=== PATIENT | male | born 1985 | race Caucasian/White ===

== ENCOUNTER 2020-09-17 19:04 | Emergency (ER) | payer BC, OTHER ==
[2020-09-17 19:11] VITALS: BMI 22.3
[2020-09-17] MEDS ORDERED: SODIUM CHLORIDE 0.9% 500 ML INFUS.BAG IV ONE (19:42)
[2020-09-17] MEDS ORDERED: FOLIC ACID 1 MG TABLET (FP) PO ONE (19:46)
[2020-09-17] MEDS ORDERED: THIAMINE HCL 100 MG TABLET (FP) PO ONE (19:46)
[2020-09-17] MEDS ORDERED: MULTIVITAMINS (DAILY MVI) TABLET (FP) PO ONE (19:46)
[2020-09-17] MEDS ORDERED: ACETAMINOPHEN 325 MG TABLET (FP) PO ONE (19:46)
[2020-09-17] MEDS ORDERED: FAMOTIDINE 20 MG/50 ML IVPB 20 MG/50 ML MG IVPB ONE ×2 (20:06→20:24)
[2020-09-17] MEDS ORDERED: ACETAMINOPHEN 325 MG TABLET (FP) ONE (20:23)
[2020-09-17 20:40] LABS: BASO % 0.8 % (0-2.0); EOS % 0.1 % (0-4.5); HEMATOCRIT 49.1 % (35.4-49); HEMOGLOBIN 16.6 GM/dL (11.7-16.9); LYMPH % 36.2 % (8-40); MCH 31.1 pg (25.7-33.7); MCHC 33.8 g/dl (32.0-35.9); MEAN CELL VOLUME 91.9 fl (80-96); MONO % 8.3 % (3.8-10.2); NEUT % 54.6 % (42.8-82.8); RBC 5.34 M/mm3 (4.00-5.60); RDW 14.1 % (11.9-15.9)
[2020-09-17 21:02] LABS: CHLORIDE 91 mmol/L (98-107); POTASSIUM 5.2 mmol/L (3.5-5.1); SODIUM 131 mmol/L (136-145)
[2020-09-17 21:05] LABS: CALCIUM 8.4 mg/dL (8.5-10.1)
[2020-09-17 21:06] LABS: ALBUMIN 4.5 g/dl (3.4-5.0); ANION GAP 17 MMOL/L (8-16); BLOOD UREA NITROGEN 8.3 mg/dL (7-18); CO2 24 mmol/L (21-32); GLUCOSE,RANDOM 76 mg/dL (74-106)
[2020-09-17 21:09] LABS: CREATININE 0.9 mg/dL (0.55-1.3); SGOT/AST 271 U/L (15-37); SGPT/ALT 182 U/L (13-61)
[2020-09-17 21:10] LABS: BILIRUBIN,TOTAL 1.1 mg/dL (0.2-1)
[2020-09-17 21:11] LABS: TOT PROT 8.4 g/dl (6.4-8.2)
[2020-09-17 21:12] LABS: ALK PHOS 116 U/L (45-117)
[2020-09-17 21:35] LABS: PLATELET ESTIMATE CANNOT ENNUMERATE
[2020-09-17] MEDS ORDERED: ONDANSETRON 4 MG/2 ML VIAL IVPUSH ONE (21:50)
[2020-09-17] MEDS ORDERED: ONDANSETRON 4 MG/2 ML VIAL ONE (21:55)
[2020-09-17] MEDS ORDERED: KETOROLAC TROMETHAMINE 30 MG/1 ML VIAL IVPUSH ONE (22:21)
[2020-09-17] MEDS ORDERED: KETOROLAC TROMETHAMINE 30 MG/1 ML VIAL ONE (22:33)
[2020-09-17] MEDS ORDERED: METOCLOPRAMIDE HCL INJECTION 10 MG/2 ML VIAL IVPUSH ONE (22:54)
[2020-09-17] MEDS ORDERED: METOCLOPRAMIDE HCL INJECTION 10 MG/2 ML VIAL ONE (22:56)
[2020-09-17] MEDS ORDERED: chlordiazePOXIDE HCL 25 MG CAPSULE PO ONE (23:48)
[2020-09-17] MEDS ORDERED: chlordiazePOXIDE HCL 25 MG CAPSULE ONE (23:49)
[2020-09-18 00:20] VITALS: BP 129/85; PULSE 113; TEMP 98.7
[2020-09-18] MEDS ORDERED: ONDANSETRON 4 MG/2 ML VIAL ONE (03:34)
[2020-09-18] MEDS ORDERED: ONDANSETRON 4 MG/2 ML VIAL IVPUSH ONE (03:34)
[2020-09-18] MEDS ORDERED: chlordiazePOXIDE HCL 25 MG CAPSULE PO ONE (03:48)
[2020-09-18] MEDS ORDERED: chlordiazePOXIDE HCL 25 MG CAPSULE ONE (03:48)
== END 2020-09-18 03:53 | disposition home or self-care (01) ==
LOC: JER 19:04
PROC: 3E033NZ Introduction of Analgesics, Hypnotics, Sedatives into Peripheral Vein, Percutaneous Approach (ICD-10-PCS; principal; 2020-09-17)
PROC: 3E033GC Introduction of Other Therapeutic Substance into Peripheral Vein, Percutaneous Approach (ICD-10-PCS; 2020-09-17)
PROC: 3E0333Z Introduction of Anti-inflammatory into Peripheral Vein, Percutaneous Approach (ICD-10-PCS; 2020-09-17)
DX: R74.01 Elevation of levels of liver transaminase levels (principal); F10.929 Alcohol use, unspecified with intoxication, unspecified
CPT/HCPCS: 36415; 71045-TC-FY; 80053; 80307; 82550; 82553; 83690; 84484; 85025; 93005; 93010; 99285-25

== ENCOUNTER 2021-06-28 18:39 | Inpatient (IN) | payer BC ==
[2021-06-28 18:49] VITALS: BMI 27.8
[2021-06-28] MEDS ORDERED: FOLIC ACID INJECTION - 1 MG, THIAMINE HCL 100 MG, MULTIVIT INJECTION ADULT 10 ML in SOD... IVPB ONE (19:25)
[2021-06-28] MEDS ORDERED: ONDANSETRON 4 MG/2 ML VIAL IVPUSH ONE (19:32)
[2021-06-28] MEDS ORDERED: chlordiazePOXIDE HCL 25 MG CAPSULE PO ONE (19:33)
[2021-06-28] MEDS ORDERED: ONDANSETRON 4 MG/2 ML VIAL ONE (19:54)
[2021-06-28] MEDS ORDERED: diazePAM 5 MG TABLET PO ONE ×2 (20:05→21:51)
[2021-06-28] MEDS ORDERED: diazePAM 5 MG TABLET ONE ×2 (20:08→21:53)
[2021-06-28 20:19] LABS: BASO % 0.7 % (0-2.0); HEMATOCRIT 42.6 % (35.4-49); HEMOGLOBIN 15.3 GM/dL (11.7-16.9); LYMPH % 19.7 % (8-40); MCH 31.7 pg (25.7-33.7); MCHC 35.9 g/dl (32.0-35.9); MEAN CELL VOLUME 88.1 fl (80-96); MEAN PLT VOLUME 9.6 fl (7.5-11.1); MONO % 7.5 % (3.8-10.2); NEUT % 72.1 % (42.8-82.8); PLATELET COUNT 147 10^3/uL (134-434); RBC 4.83 M/mm3 (4.00-5.60); RDW 15.1 % (11.9-15.9); WHITE BLOOD COUNT 7.2 K/mm3 (4.0-10.0)
[2021-06-28 20:38] LABS: CALCIUM 8.5 mg/dL (8.5-10.1)
[2021-06-28 20:39] LABS: ALBUMIN 4.4 g/dl (3.4-5.0); BLOOD UREA NITROGEN 9.3 mg/dL (7-18)
[2021-06-28 20:42] LABS: CREATININE 0.8 mg/dL (0.55-1.3)
[2021-06-28 20:43] LABS: BILIRUBIN,TOTAL 1.3 mg/dL (0.2-1)
[2021-06-29] MEDS ORDERED: POTASSIUM CHLORIDE ORAL LIQUID 20 MEQ/15 ML PO ONE (00:16)
[2021-06-29] MEDS ORDERED: ONDANSETRON 4 MG/2 ML VIAL IVPUSH ONE (00:21)
[2021-06-29] MEDS ORDERED: LORazepam 1 MG TABLET PO PRN (00:23)
[2021-06-29] MEDS ORDERED: ONDANSETRON 4 MG/2 ML VIAL ONE (00:25)
[2021-06-29] MEDS ORDERED: KCL 10 MEQ IVPB 10 MEQ/100 ML INFUS.BAG IVPB SCH (00:30)
[2021-06-29] MEDS ORDERED: SODIUM CHLORIDE 1,000 ML IV SCH (00:30)
[2021-06-29] MEDS ORDERED: KCL 10 MEQ IVPB 10 MEQ/100 ML INFUS.BAG IVPB ONE (01:35)
[2021-06-29] MEDS ORDERED: POTASSIUM CHLORIDE TABS 20 MEQ TABLET.ER (FP) PO ONE ×2 (01:35→10:30)
[2021-06-29] MEDS ORDERED: LORazepam 1 MG TABLET ONE (02:11)
[2021-06-29 02:12] LABS: EPI CELLS 14 /uL (0-25.1); HYALINE CASTS 0 /uL (0-3.1); PH,URINE 6.5 (5.0-8.0); URINE APPEARANCE CLEAR; URINE BACTERIA 27 /uL (0-1359); URINE BILIRUBIN NEGATIVE (NEGATIVE); URINE COLOR DK YELLOW; URINE GLUCOSE (UA) NEGATIVE (NEGATIVE); URINE KETONE 3+ (NEGATIVE); URINE LEUK ESTERASE TRACE (NEGATIVE); URINE NITRITE NEGATIVE (NEGATIVE); URINE PROTEIN 1+ (NEGATIVE); URINE RBC 13 /uL (0-23.9); URINE WBC 7 /uL (0-25.8)
[2021-06-29] MEDS: LORazepam 1 MG TABLET PO SCH ×4 (04:03→22:01)
[2021-06-29] MEDS ORDERED: FOLIC ACID INJECTION - 1 MG, THIAMINE HCL 100 MG, MULTIVIT INJECTION ADULT 10 ML in SOD... IVPB ONE (05:37)
[2021-06-29] MEDS ORDERED: LORazepam 2 MG/ML SDV VIAL IVPUSH ONE (09:30)
[2021-06-29] MEDS ORDERED: LORazepam 2 MG/ML SDV VIAL ONE (09:33)
[2021-06-29] MEDS: THIAMINE HCL 100 MG TABLET (FP) PO SCH (09:43)
[2021-06-29] MEDS: FOLIC ACID 1 MG TABLET (FP) PO SCH (09:43)
[2021-06-29] MEDS: ENOXAPARIN NA (PORCINE) 40 MG/0.4 ML DISP.SYRIN SQ SCH (09:43)
[2021-06-29 10:03] LABS: HEMATOCRIT 38.2 % (35.4-49); HEMOGLOBIN 13.4 GM/dL (11.7-16.9); MCH 31.6 pg (25.7-33.7); MCHC 35.1 g/dl (32.0-35.9); MEAN PLT VOLUME 9.8 fl (7.5-11.1); PLATELET COUNT 73 10^3/uL (134-434); RBC 4.24 M/mm3 (4.00-5.60); RDW 15.3 % (11.9-15.9); WHITE BLOOD COUNT 6.5 K/mm3 (4.0-10.0)
[2021-06-29 10:06] LABS: ALBUMIN 3.6 g/dl (3.4-5.0); BLOOD UREA NITROGEN 8.4 mg/dL (7-18)
[2021-06-29 10:10] LABS: MAGNESIUM 1.8 mg/dL (1.8-2.4)
[2021-06-29 10:11] LABS: CREATININE 0.7 mg/dL (0.55-1.3); PHOSPHOROUS 2.8 mg/dL (2.5-4.9)
[2021-06-29 10:14] LABS: BILIRUBIN,TOTAL 1.9 mg/dL (0.2-1); TOT PROT 6.7 g/dl (6.4-8.2)
[2021-06-29] MEDS ORDERED: PT OWN MED DRAWER 7, Y5N ONE (10:23)
[2021-06-30] MEDS: LORazepam 1 MG TABLET PO SCH ×3 (05:49→17:11)
[2021-06-30 08:06] LABS: BASO % 0.6 % (0-2.0); EOS % 1.9 % (0-4.5); HEMATOCRIT 41.7 % (35.4-49); HEMOGLOBIN 14.6 GM/dL (11.7-16.9); LYMPH % 19.6 % (8-40); MCHC 34.9 g/dl (32.0-35.9); MEAN CELL VOLUME 91.6 fl (80-96); MEAN PLT VOLUME 9.2 fl (7.5-11.1); MONO % 8.7 % (3.8-10.2); NEUT % 69.2 % (42.8-82.8); PLATELET COUNT 63 10^3/uL (134-434); RBC 4.56 M/mm3 (4.00-5.60); RDW 14.9 % (11.9-15.9)
[2021-06-30 08:36] LABS: WHITE BLOOD COUNT 5.9 K/mm3 (4.0-10.0)
[2021-06-30 08:42] LABS: BLOOD UREA NITROGEN 9.4 mg/dL (7-18)
[2021-06-30 08:43] LABS: ALBUMIN 3.8 g/dl (3.4-5.0); CALCIUM 8.5 mg/dL (8.5-10.1)
[2021-06-30 08:45] LABS: MAGNESIUM 2.1 mg/dL (1.8-2.4)
[2021-06-30 08:46] LABS: CREATININE 0.7 mg/dL (0.55-1.3); PHOSPHOROUS 2.6 mg/dL (2.5-4.9)
[2021-06-30 08:49] LABS: BILIRUBIN,TOTAL 1.6 mg/dL (0.2-1)
[2021-06-30] MEDS: FOLIC ACID 1 MG TABLET (FP) PO SCH (09:39)
[2021-06-30] MEDS: THIAMINE HCL 100 MG TABLET (FP) PO SCH (09:39)
[2021-06-30] MEDS: ENOXAPARIN NA (PORCINE) 40 MG/0.4 ML DISP.SYRIN SQ SCH (09:39)
[2021-06-30] MEDS ORDERED: SERTRALINE HCL 25 MG TABLET (FP) PO SCH (10:00)
[2021-06-30 13:40] VITALS: PULSE 108
[2021-06-30 18:05] VITALS: BP 148/98; TEMP 97.8
[2021-07-01] MEDS ORDERED: LORazepam 0.5 MG TABLET PO PRN
[2021-07-01] MEDS ORDERED: LORazepam 0.5 MG TABLET PO SCH (05:00)
[2021-07-02] MEDS ORDERED: LORazepam 0.5 MG TABLET PO ONE (05:00)
== END 2021-06-30 18:29 | disposition other institution (70) | DRG 897 ==
LOC: JER 18:39 → JERBED 21:57 → J5S 06-29 03:43 → J4S 06-29 15:17
PROVIDERS: ADMIT Internal Medicine
PROC: HZ2ZZZZ Detoxification Services for Substance Abuse Treatment (ICD-10-PCS; principal; 2021-06-28)
DX: F10.230 Alcohol dependence with withdrawal, uncomplicated (principal); E87.1 Hypo-osmolality and hyponatremia; R00.0 Tachycardia, unspecified; R56.9 Unspecified convulsions; E87.6 Hypokalemia; R94.5 Abnormal results of liver function studies; F41.8 Other specified anxiety disorders; F12.10 Cannabis abuse, uncomplicated
CPT/HCPCS: 36415; 71045-TC-FY; 76705-TC; 80053; 80307; 81003; 82570; 83735; 83935; 84100; 84300; 85025; 85027; 86022; 86706; 86708; 87086; 87517; 87522; 93005; 93010; 99285-25; C9803; U0003; U0005

== ENCOUNTER 2021-11-19 00:55 | Emergency (ER) | payer BC, OTHER ==
[2021-11-19 01:03] VITALS: BMI 27.8
[2021-11-19 01:20] VITALS: BP 135/65; TEMP 98.8
[2021-11-19] MEDS ORDERED: ONDANSETRON 4 MG/2 ML VIAL IVPUSH ONE (01:47)
[2021-11-19] MEDS ORDERED: MAG HYDROX/AL HYDROX/SIMETH 30 ML UNIT-DOSE CUP PO ONE (01:47)
[2021-11-19] MEDS ORDERED: FAMOTIDINE 20 MG/50 ML IVPB 20 MG/50 ML MG IVPB ONE ×3 (01:47→02:00)
[2021-11-19] MEDS ORDERED: FOLIC ACID 5 MG/1 ML IVPB ONE (01:49)
[2021-11-19] MEDS ORDERED: MAG HYDROX/AL HYDROX/SIMETH 30 ML UNIT-DOSE CUP ONE (01:59)
[2021-11-19] MEDS ORDERED: ONDANSETRON 4 MG/2 ML VIAL ONE (02:01)
[2021-11-19] MEDS ORDERED: THIAMINE HCL 200 MG/2 ML VIAL ONE (02:10)
[2021-11-19] MEDS ORDERED: FOLIC ACID 1 MG TABLET (FP) ONE (02:10)
[2021-11-19] MEDS: SODIUM CHLORIDE IVPB STA ×2 (02:18→02:25)
[2021-11-19] MEDS: THIAMINE HCL IVPB STA ×2 (02:18→02:25)
[2021-11-19] MEDS ORDERED: THIAMINE HCL IVPB STA (02:21)
[2021-11-19] MEDS ORDERED: SODIUM CHLORIDE IVPB STA (02:21)
[2021-11-19] MEDS ORDERED: chlordiazePOXIDE HCL 25 MG CAPSULE PO ONE (02:41)
[2021-11-19] MEDS ORDERED: chlordiazePOXIDE HCL 25 MG CAPSULE ONE (02:47)
[2021-11-19 02:49] LABS: BASO % 1.1 % (0-2.0); HEMATOCRIT 49.6 % (35.4-49); HEMOGLOBIN 17.3 GM/dL (11.7-16.9); LYMPH % 18.1 % (8-40); MCH 31.8 pg (25.7-33.7); MCHC 34.9 g/dl (32.0-35.9); MEAN CELL VOLUME 91.1 fl (80-96); MEAN PLT VOLUME 9.5 fl (7.5-11.1); MONO % 7.2 % (3.8-10.2); NEUT % 73.6 % (42.8-82.8); PLATELET COUNT 198 10^3/uL (134-434); RBC 5.45 M/mm3 (4.00-5.60); RDW 14.5 % (11.9-15.9); WHITE BLOOD COUNT 6.3 K/mm3 (4.0-10.0)
[2021-11-19 03:02] LABS: CHLORIDE 86 mmol/L (98-107); SODIUM 126 mmol/L (136-145)
[2021-11-19 03:04] LABS: ALBUMIN 4.6 g/dl (3.4-5.0); BLOOD UREA NITROGEN 12.4 mg/dL (7-18); CO2 22 mmol/L (21-32); GLUCOSE,RANDOM 89 mg/dL (74-106); MAGNESIUM 2.6 mg/dL (1.8-2.4)
[2021-11-19 03:07] LABS: PHOSPHOROUS 4.6 mg/dL (2.5-4.9)
[2021-11-19 03:09] LABS: BILIRUBIN,TOTAL 0.8 mg/dL (0.2-1); TOT PROT 9.3 g/dl (6.4-8.2)
[2021-11-19 03:10] LABS: ALK PHOS 111 U/L (45-117)
[2021-11-19 03:16] VITALS: PULSE 120
[2021-11-19 03:24] LABS: ANION GAP 18 MMOL/L (8-16); SGOT/AST 138 U/L (15-37); SGPT/ALT 109 U/L (13-61)
== END 2021-11-19 03:16 | disposition short-term general hospital (02) ==
LOC: JER 00:55
PROC: 3E033GC Introduction of Other Therapeutic Substance into Peripheral Vein, Percutaneous Approach (ICD-10-PCS; principal; 2021-11-19)
PROC: 3E033GC Introduction of Other Therapeutic Substance into Peripheral Vein, Percutaneous Approach (ICD-10-PCS; 2021-11-19)
PROC: 3E033GC Introduction of Other Therapeutic Substance into Peripheral Vein, Percutaneous Approach (ICD-10-PCS; 2021-11-19)
PROC: 3E0337Z Introduction of Electrolytic and Water Balance Substance into Peripheral Vein, Percutaneous Approach (ICD-10-PCS; 2021-11-19)
DX: F10.10 Alcohol abuse, uncomplicated (principal)
CPT/HCPCS: 36415; 80053; 80307; 83690; 83735; 84100; 85025; 93005; 93010; 99284-25

== ENCOUNTER 2021-11-19 03:41 | Inpatient (IN) | payer OTHER ==
[2021-11-19] MEDS ORDERED: chlordiazePOXIDE HCL 25 MG CAPSULE PO PRN (04:42)
[2021-11-19] MEDS ORDERED: P-EPHED 60MG/TRIPROLIDI 2.5MG TABLET PO PRN (04:42)
[2021-11-19] MEDS ORDERED: ACETAMINOPHEN 325 MG TABLET (FP) PO PRN ×2 (04:42)
[2021-11-19] MEDS ORDERED: DICYCLOMINE HCL 10 MG CAPSULE PO PRN (04:42)
[2021-11-19] MEDS ORDERED: MAGNESIUM CITRATE 300 ML BOTTLE PO PRN (04:42)
[2021-11-19] MEDS ORDERED: ONDANSETRON *ODT* 4 MG TABLET SL PRN (04:42)
[2021-11-19] MEDS ORDERED: guaiFENesin 200 MG/10 ML 10 ML UNIT-DOSE CUPS PO PRN (04:42)
[2021-11-19] MEDS ORDERED: MENTHOL/PHENOL 1 EACH UD MM PRN (04:42)
[2021-11-19] MEDS ORDERED: MAG HYDROX/AL HYDROX/SIMETH 30 ML UNIT-DOSE CUP PO PRN (04:42)
[2021-11-19] MEDS ORDERED: BISMUTH SUBSALICYLATE 524 MG/30 ML PO PRN (04:42)
[2021-11-19] MEDS ORDERED: METHOCARBAMOL 500 MG TABLET PO PRN (04:42)
[2021-11-19] MEDS ORDERED: MAGNESIUM HYDROX 2400MG/30ML ORAL SUSPENSION 30 ML CUP PO PRN (04:42)
[2021-11-19] MEDS ORDERED: chlordiazePOXIDE HCL 25 MG CAPSULE ONE ×3 (05:22→13:27)
[2021-11-19] MEDS: chlordiazePOXIDE HCL 25 MG CAPSULE PO SCH ×4 (05:24→22:07)
[2021-11-19 05:41] VITALS: BMI 28.8
[2021-11-19] MEDS ORDERED: TRIMETHOBENZAMIDE HCL 200MG/2ML INJ IM ONE ×2 (07:04→07:17)
[2021-11-19] MEDS ORDERED: cloNIDine HCL 0.1 MG TABLET PO ONE (07:04)
[2021-11-19] MEDS ORDERED: cloNIDine HCL 0.1 MG TABLET ONE (07:33)
[2021-11-19] MEDS ORDERED: ACETAMINOPHEN 325 MG TABLET (FP) ONE (11:36)
[2021-11-19] MEDS: PRENATAL VITAMINS W/ FOLIC ACID TABLET (FP) PO SCH (11:41)
[2021-11-19] MEDS ORDERED: METOPROLOL TARTRATE 25 MG TABLET (FP) PO ONE (13:26)
[2021-11-19 15:00] LABS: CALCIUM 8.8 mg/dL (8.5-10.1)
[2021-11-19 15:01] LABS: ALBUMIN 4.2 g/dl (3.4-5.0)
[2021-11-19 15:03] LABS: CREATININE 1.1 mg/dL (0.55-1.3)
[2021-11-19 15:06] LABS: BILIRUBIN,TOTAL 1.4 mg/dL (0.2-1); TOT PROT 7.6 g/dl (6.4-8.2)
[2021-11-19] MEDS: IBUPROFEN 400 MG TABLET (FP) PO PRN (17:46)
[2021-11-19] MEDS: THIAMINE HCL 100 MG TABLET (FP) PO SCH (22:06)
[2021-11-19] MEDS: MELATONIN 5 MG TABLETS PO SCH (22:06)
[2021-11-20] MEDS: IBUPROFEN 400 MG TABLET (FP) PO PRN ×3 (05:29→17:55)
[2021-11-20] MEDS: chlordiazePOXIDE HCL 25 MG CAPSULE PO SCH ×4 (05:30→22:11)
[2021-11-20] MEDS: PRENATAL VITAMINS W/ FOLIC ACID TABLET (FP) PO SCH (10:13)
[2021-11-20 12:06] LABS: HEMOGLOBIN 15.7 GM/dL (11.7-16.9); MCH 31.3 pg (25.7-33.7); MCHC 33.3 g/dl (32.0-35.9); MEAN CELL VOLUME 93.9 fl (80-96); PLATELET COUNT 108 10^3/uL (134-434); RBC 5.01 M/mm3 (4.00-5.60); RDW 14.4 % (11.9-15.9); WHITE BLOOD COUNT 5.6 K/mm3 (4.0-10.0)
[2021-11-20] MEDS: MELATONIN 5 MG TABLETS PO SCH (22:11)
[2021-11-20] MEDS: THIAMINE HCL 100 MG TABLET (FP) PO SCH (22:11)
[2021-11-21] MEDS ORDERED: chlordiazePOXIDE HCL 10 MG CAPSULE PO PRN
[2021-11-21] MEDS: chlordiazePOXIDE HCL 10 MG CAPSULE PO SCH ×4 (05:27→22:05)
[2021-11-21] MEDS: IBUPROFEN 400 MG TABLET (FP) PO PRN ×2 (06:47→17:30)
[2021-11-21] MEDS: PRENATAL VITAMINS W/ FOLIC ACID TABLET (FP) PO SCH (10:10)
[2021-11-21] MEDS ORDERED: POTASSIUM CHLORIDE ORAL LIQUID 20 MEQ/15 ML PO ONE (12:03)
[2021-11-21] MEDS: THIAMINE HCL 100 MG TABLET (FP) PO SCH (22:05)
[2021-11-21] MEDS: MELATONIN 5 MG TABLETS PO SCH (22:05)
[2021-11-21] MEDS: POTASSIUM CHLORIDE ORAL LIQUID 20 MEQ/15 ML PO SCH (22:05)
[2021-11-22] MEDS ORDERED: chlordiazePOXIDE HCL 10 MG CAPSULE PO SCH (05:00)
[2021-11-22 09:38] VITALS: BP 139/83; PULSE 118; TEMP 97.6
[2021-11-22] MEDS: POTASSIUM CHLORIDE ORAL LIQUID 20 MEQ/15 ML PO SCH (10:23)
[2021-11-22] MEDS: PRENATAL VITAMINS W/ FOLIC ACID TABLET (FP) PO SCH (10:23)
[2021-11-23] MEDS ORDERED: chlordiazePOXIDE HCL 10 MG CAPSULE PO ONE (05:00)
== END 2021-11-22 11:00 | disposition home or self-care (01) | DRG 775 ==
LOC: YASAS 03:41 → Y3N 14:13
PROVIDERS: ADMIT Allergy & Immunology; ATTEND Allergy & Immunology
PROC: HZ2ZZZZ Detoxification Services for Substance Abuse Treatment (ICD-10-PCS; principal; 2021-11-19)
DX: F10.220 Alcohol dependence with intoxication, uncomplicated (principal); F19.24 Other psychoactive substance dependence with psychoactive substance-induced mood disorder; E87.6 Hypokalemia; R63.8 Other symptoms and signs concerning food and fluid intake
CPT/HCPCS: 36415; 80053; 80307; 83690; 83735; 84100; 84132; 85025; 85027; 86780; 93005; 93010; 99284-25; C9803; J0735; Q0162; U0003; U0005

== ENCOUNTER 2022-04-22 14:54 | Inpatient (IN) | payer OTHER ==
[2022-04-22] MEDS ORDERED: FOLIC ACID INJECTION - 1 MG, THIAMINE HCL 100 MG, MULTIVIT INJECTION ADULT 10 ML in SOD... IVPB ONE (16:50)
[2022-04-22] MEDS ORDERED: THIAMINE HCL 200 MG/2 ML VIAL IVPB ONE (16:50)
[2022-04-22] MEDS ORDERED: ONDANSETRON 4 MG/2 ML VIAL IVPUSH ONE (16:51)
[2022-04-22] MEDS ORDERED: LORazepam 2 MG/ML SDV VIAL IVPUSH ONE ×2 (16:51→18:09)
[2022-04-22] MEDS ORDERED: THIAMINE HCL 200 MG/2 ML VIAL ONE (16:58)
[2022-04-22] MEDS ORDERED: ONDANSETRON 4 MG/2 ML VIAL ONE (16:58)
[2022-04-22 17:43] LABS: BASO % 0.1 % (0-2.0); HEMATOCRIT 41.2 % (35.4-49); HEMOGLOBIN 14.7 GM/dL (11.7-16.9); LYMPH % 8.7 % (8-40); MCH 32.5 pg (25.7-33.7); MCHC 35.7 g/dl (32.0-35.9); MEAN PLT VOLUME 8.3 fl (7.5-11.1); MONO % 7.7 % (3.8-10.2); NEUT % 83.5 % (42.8-82.8); PLATELET COUNT 109 10^3/uL (134-434); RBC 4.53 M/mm3 (4.00-5.60); RDW 17.6 % (11.9-15.9); WHITE BLOOD COUNT 8.1 K/mm3 (4.0-10.0)
[2022-04-22] MEDS ORDERED: FAMOTIDINE 20 MG/50 ML IVPB 20 MG/50 ML MG IVPB ONE ×2 (17:50→18:04)
[2022-04-22 17:52] LABS: INR 1.09 (0.83-1.09); PROTHROMBIN TIME (PATIENT) 12.5 SEC (9.7-13.0)
[2022-04-22 18:11] LABS: ALBUMIN 4.2 g/dl (3.4-5.0); BLOOD UREA NITROGEN 9.1 mg/dL (7-18); CALCIUM 8.3 mg/dL (8.5-10.1); MAGNESIUM 2.3 mg/dL (1.8-2.4)
[2022-04-22 18:14] LABS: CREATININE 0.7 mg/dL (0.55-1.3); PHOSPHOROUS 3.9 mg/dL (2.5-4.9)
[2022-04-22 18:15] LABS: TOT PROT 7.9 g/dl (6.4-8.2)
[2022-04-22] MEDS ORDERED: LORazepam 1 MG TABLET PO PRN (20:12)
[2022-04-22] MEDS ORDERED: DICYCLOMINE HCL 10 MG CAPSULE PO PRN (20:13)
[2022-04-22] MEDS ORDERED: MAGNESIUM HYDROX 2400MG/30ML ORAL SUSPENSION 30 ML CUP PO PRN (20:13)
[2022-04-22] MEDS ORDERED: METHOCARBAMOL 500 MG TABLET PO PRN (20:13)
[2022-04-22] MEDS ORDERED: BISMUTH SUBSALICYLATE 524 MG/30 ML PO PRN (20:13)
[2022-04-22] MEDS ORDERED: MAGNESIUM CITRATE 300 ML BOTTLE PO PRN (20:13)
[2022-04-22] MEDS ORDERED: IBUPROFEN 600 MG TABLET (FP) PO PRN (20:13)
[2022-04-22] MEDS ORDERED: LOPERAMIDE HCL 2 MG CAPSULE PO PRN (20:13)
[2022-04-22] MEDS ORDERED: MAG HYDROX/AL HYDROX/SIMETH 30 ML UNIT-DOSE CUP PO PRN (20:13)
[2022-04-22] MEDS ORDERED: ONDANSETRON *ODT* 4 MG TABLET SL PRN (20:13)
[2022-04-22] MEDS ORDERED: BENZOCAINE/MENTHOL (CHLORASEPTIC ) LOZENGE MM PRN (20:13)
[2022-04-22] MEDS ORDERED: ACETAMINOPHEN 325 MG TABLET (FP) PO PRN ×2 (20:13)
[2022-04-22] MEDS ORDERED: IBUPROFEN 400 MG TABLET (FP) PO PRN (20:13)
[2022-04-22] MEDS ORDERED: POTASSIUM CHLORIDE TABS 20 MEQ TABLET.ER (FP) PO ONE ×2 (20:47→21:20)
[2022-04-22] MEDS: KCL 10 MEQ IVPB 10 MEQ/100 ML INFUS.BAG IVPB SCH (21:04)
[2022-04-22] MEDS ORDERED: MELATONIN 5 MG TABLETS ONE (21:53)
[2022-04-22] MEDS ORDERED: THIAMINE HCL 100 MG TABLET (FP) ONE ×2 (21:53→21:54)
[2022-04-22] MEDS ORDERED: hydrOXYzine PAMOATE 25 MG CAPSULE (FP) PO SCH (22:00)
[2022-04-22] MEDS ORDERED: MELATONIN 5 MG TABLETS PO SCH (22:00)
[2022-04-22] MEDS: THIAMINE HCL 100 MG TABLET (FP) PO SCH (22:01)
[2022-04-22] MEDS: LORazepam 1 MG TABLET PO SCH (22:59)
[2022-04-23 00:33] VITALS: BMI 28.4
[2022-04-23] MEDS: LORazepam 1 MG TABLET PO SCH ×4 (06:02→22:36)
[2022-04-23 08:39] LABS: HEMATOCRIT 37.2 % (35.4-49); HEMOGLOBIN 13.1 GM/dL (11.7-16.9); MCHC 35.1 g/dl (32.0-35.9); MEAN CELL VOLUME 93.9 fl (80-96); MEAN PLT VOLUME 9.4 fl (7.5-11.1); PLATELET COUNT 69 10^3/uL (134-434); RBC 3.96 M/mm3 (4.00-5.60); RDW 17.4 % (11.9-15.9); WHITE BLOOD COUNT 4.9 K/mm3 (4.0-10.0)
[2022-04-23 08:58] LABS: ALBUMIN 3.4 g/dl (3.4-5.0); CALCIUM 8.1 mg/dL (8.5-10.1)
[2022-04-23 09:01] LABS: CREATININE 0.6 mg/dL (0.55-1.3); PHOSPHOROUS 3.4 mg/dL (2.5-4.9)
[2022-04-23 09:02] LABS: BILIRUBIN,TOTAL 1.3 mg/dL (0.2-1); TOT PROT 6.4 g/dl (6.4-8.2)
[2022-04-23] MEDS ORDERED: ENOXAPARIN NA (PORCINE) 40 MG/0.4 ML DISP.SYRIN SQ SCH (10:00)
[2022-04-23] MEDS: PRENATAL VITAMINS W/ FOLIC ACID TABLET (FP) PO SCH (10:34)
[2022-04-23] MEDS ORDERED: LORazepam 1 MG TABLET PO PRN (11:57)
[2022-04-23] MEDS ORDERED: POTASSIUM CHLORIDE TABS 20 MEQ TABLET.ER (FP) PO ONE (13:44)
[2022-04-23] MEDS: POTASSIUM CHLORIDE TABS 20 MEQ TABLET.ER (FP) PO SCH (14:04)
[2022-04-23] MEDS: LORazepam 2 MG/ML SDV VIAL IVPUSH PRN (14:06)
[2022-04-23] MEDS ORDERED: MELATONIN 5 MG TABLETS PO ONE (20:49)
[2022-04-23] MEDS: THIAMINE HCL 100 MG TABLET (FP) PO SCH (21:55)
[2022-04-24] MEDS: LORazepam 2 MG/ML SDV VIAL IVPUSH PRN (03:25)
[2022-04-24] MEDS: LORazepam 1 MG TABLET PO SCH ×2 (06:00→10:14)
[2022-04-24 09:20] VITALS: BP 131/82; TEMP 99.6
[2022-04-24] MEDS ORDERED: LORazepam 1 MG TABLET PO PRN (09:47)
[2022-04-24] MEDS: POTASSIUM CHLORIDE TABS 20 MEQ TABLET.ER (FP) PO SCH (10:14)
[2022-04-24] MEDS: PRENATAL VITAMINS W/ FOLIC ACID TABLET (FP) PO SCH (10:15)
[2022-04-24 11:00] LABS: BASO % 0.5 % (0-2.0); EOS % 0.6 % (0-4.5); HEMATOCRIT 39.5 % (35.4-49); HEMOGLOBIN 13.8 GM/dL (11.7-16.9); MCH 32.8 pg (25.7-33.7); MEAN CELL VOLUME 93.9 fl (80-96); MEAN PLT VOLUME 9.7 fl (7.5-11.1); MONO % 7.2 % (3.8-10.2); NEUT % 79.7 % (42.8-82.8); PLATELET COUNT 60 10^3/uL (134-434); RBC 4.21 M/mm3 (4.00-5.60); RDW 17.8 % (11.9-15.9); WHITE BLOOD COUNT 4.3 K/mm3 (4.0-10.0)
[2022-04-24 11:20] LABS: INR 1.05 (0.83-1.09); PROTHROMBIN TIME (PATIENT) 12.1 SEC (9.7-13.0)
[2022-04-24 11:37] LABS: BILIRUBIN,TOTAL 1.2 mg/dL (0.2-1); BLOOD UREA NITROGEN 10.7 mg/dL (7-18); CREATININE 0.7 mg/dL (0.55-1.3)
[2022-04-24 11:39] LABS: ALBUMIN 3.8 g/dl (3.4-5.0); TOT PROT 6.9 g/dl (6.4-8.2)
[2022-04-24 14:38] VITALS: PULSE 96
[2022-04-25] MEDS ORDERED: LORazepam 0.5 MG TABLET PO PRN
[2022-04-25] MEDS ORDERED: LORazepam 0.5 MG TABLET PO SCH (05:00)
[2022-04-26] MEDS ORDERED: LORazepam 0.5 MG TABLET PO ONE (05:00)
== END 2022-04-24 14:38 | disposition left against medical advice (07) | DRG 894 ==
LOC: JER 14:54 → JERBED 19:19 → J8W 22:44
PROVIDERS: ADMIT Hospitalist; ATTEND Internal Medicine
PROC: HZ2ZZZZ Detoxification Services for Substance Abuse Treatment (ICD-10-PCS; principal; 2022-04-22)
DX: F10.239 Alcohol dependence with withdrawal, unspecified (principal); E87.1 Hypo-osmolality and hyponatremia; E46 Unspecified protein-calorie malnutrition; E87.6 Hypokalemia; F41.8 Other specified anxiety disorders; K76.0 Fatty (change of) liver, not elsewhere classified; D69.6 Thrombocytopenia, unspecified; R94.5 Abnormal results of liver function studies; Z68.28 Body mass index [BMI] 28.0-28.9, adult
CPT/HCPCS: 36415; 70450-TC; 71046-TC-FY; 80053; 83036; 83690; 83735; 84100; 84443; 85025; 85027; 85610; 85730; 86704; 86803; 87340; 87517; 93005; 93010; 97116-GP; 97161-GP; 99285-25; C9803-CS; U0003; U0005

== ENCOUNTER 2022-04-25 10:41 | Inpatient (IN) | payer OTHER ==
[2022-04-25 11:19] VITALS: BMI 29.5
[2022-04-25] MEDS ORDERED: diazePAM CARPU-JECT 10 MG/2 ML DISP.SYRIN IVPUSH ONE ×2 (13:34→15:17)
[2022-04-25] MEDS ORDERED: ONDANSETRON 4 MG/2 ML VIAL IVPUSH ONE (13:34)
[2022-04-25] MEDS ORDERED: FOLIC ACID INJECTION - 1 MG, THIAMINE HCL 100 MG, MULTIVIT INJECTION ADULT 10 ML in SOD... IVPB ONE (13:34)
[2022-04-25] MEDS ORDERED: ONDANSETRON 4 MG/2 ML VIAL ONE (13:47)
[2022-04-25] MEDS ORDERED: diazePAM CARPU-JECT 10 MG/2 ML DISP.SYRIN ONE ×2 (13:47→15:34)
[2022-04-25 14:24] LABS: BASO % 0.4 % (0-2.0); EOS % 0.6 % (0-4.5); HEMATOCRIT 43.7 % (35.4-49); HEMOGLOBIN 15.1 GM/dL (11.7-16.9); LYMPH % 22.3 % (8-40); MCH 32.5 pg (25.7-33.7); MCHC 34.5 g/dl (32.0-35.9); MEAN CELL VOLUME 94.3 fl (80-96); MEAN PLT VOLUME 9.6 fl (7.5-11.1); MONO % 11.9 % (3.8-10.2); NEUT % 64.8 % (42.8-82.8); PLATELET COUNT 91 10^3/uL (134-434); RBC 4.63 M/mm3 (4.00-5.60); RDW 17.7 % (11.9-15.9); WHITE BLOOD COUNT 5.4 K/mm3 (4.0-10.0)
[2022-04-25 14:48] LABS: ALBUMIN 4.2 g/dl (3.4-5.0); CALCIUM 8.9 mg/dL (8.5-10.1)
[2022-04-25 14:49] LABS: BLOOD UREA NITROGEN 4.3 mg/dL (7-18); MAGNESIUM 2.3 mg/dL (1.8-2.4)
[2022-04-25 14:50] LABS: BILIRUBIN,TOTAL 0.7 mg/dL (0.2-1); CREATININE 0.6 mg/dL (0.55-1.3)
[2022-04-25 14:52] LABS: PHOSPHOROUS 3.5 mg/dL (2.5-4.9)
[2022-04-25 14:53] LABS: TOT PROT 7.9 g/dl (6.4-8.2)
[2022-04-25] MEDS ORDERED: LORazepam 1 MG TABLET ONE ×3 (17:14→22:21)
[2022-04-25] MEDS: LORazepam 1 MG TABLET PO SCH ×2 (17:15→22:26)
[2022-04-25] MEDS ORDERED: ONDANSETRON 4 MG/2 ML VIAL IVPUSH PRN (17:17)
[2022-04-25 17:41] LABS: CALCIUM 8.4 mg/dL (8.5-10.1)
[2022-04-25 17:43] LABS: ALBUMIN 3.9 g/dl (3.4-5.0); BLOOD UREA NITROGEN 4.2 mg/dL (7-18)
[2022-04-25 17:45] LABS: CREATININE 0.6 mg/dL (0.55-1.3)
[2022-04-25 17:47] LABS: BILIRUBIN,TOTAL 0.8 mg/dL (0.2-1); TOT PROT 7.4 g/dl (6.4-8.2)
[2022-04-25] MEDS: SODIUM CHLORIDE 1,000 ML IV SCH (18:47)
[2022-04-25] MEDS ORDERED: LORazepam 0.5 MG TABLET ONE (20:11)
[2022-04-25] MEDS: LORazepam 1 MG TABLET PO PRN (20:12)
[2022-04-25] MEDS ORDERED: LORazepam 2 MG/ML SDV VIAL IVPUSH ONE (20:45)
[2022-04-26] MEDS: LORazepam 1 MG TABLET PO SCH ×4 (04:58→23:34)
[2022-04-26] MEDS: FOLIC ACID 1 MG TABLET (FP) PO SCH (09:10)
[2022-04-26] MEDS: LORazepam 1 MG TABLET PO PRN (09:10)
[2022-04-26] MEDS: THIAMINE HCL 100 MG TABLET (FP) PO SCH (09:10)
[2022-04-26] MEDS: MULTIVITAMINS THER W-MINERALS COMBO TABLET (FP) PO SCH (09:10)
[2022-04-26] MEDS: SERTRALINE HCL 25 MG TABLET (FP) PO SCH (09:10)
[2022-04-26 09:13] LABS: BASO % 0.7 % (0-2.0); EOS % 2.6 % (0-4.5); HEMATOCRIT 38.6 % (35.4-49); HEMOGLOBIN 13.4 GM/dL (11.7-16.9); LYMPH % 20.7 % (8-40); MCHC 34.8 g/dl (32.0-35.9); MEAN CELL VOLUME 95.1 fl (80-96); MONO % 9.1 % (3.8-10.2); NEUT % 66.9 % (42.8-82.8); PLATELET COUNT 70 10^3/uL (134-434); RBC 4.06 M/mm3 (4.00-5.60); RDW 17.3 % (11.9-15.9); WHITE BLOOD COUNT 4.4 K/mm3 (4.0-10.0)
[2022-04-26 10:50] LABS: ALBUMIN 3.4 g/dl (3.4-5.0); BLOOD UREA NITROGEN 5.3 mg/dL (7-18); CALCIUM 8.1 mg/dL (8.5-10.1); MAGNESIUM 1.8 mg/dL (1.8-2.4)
[2022-04-26 10:52] LABS: CREATININE 0.5 mg/dL (0.55-1.3)
[2022-04-26 10:53] LABS: BILIRUBIN,TOTAL 1.1 mg/dL (0.2-1); PHOSPHOROUS 3.5 mg/dL (2.5-4.9); TOT PROT 6.2 g/dl (6.4-8.2)
[2022-04-26] MEDS: SODIUM CHLORIDE 1,000 ML IV SCH ×2 (13:24→18:01)
[2022-04-27] MEDS ORDERED: MELATONIN 5 MG TABLETS PO ONE (01:12)
[2022-04-27] MEDS ORDERED: LORazepam 1 MG TABLET PO SCH (05:00)
[2022-04-27] MEDS: FOLIC ACID 1 MG TABLET (FP) PO SCH (10:02)
[2022-04-27] MEDS: MULTIVITAMINS THER W-MINERALS COMBO TABLET (FP) PO SCH (10:02)
[2022-04-27] MEDS: THIAMINE HCL 100 MG TABLET (FP) PO SCH (10:02)
[2022-04-27] MEDS: SERTRALINE HCL 25 MG TABLET (FP) PO SCH (10:02)
[2022-04-27 10:43] LABS: BASO % 0.9 % (0-2.0); HEMATOCRIT 40.5 % (35.4-49); LYMPH % 22.6 % (8-40); MCH 32.8 pg (25.7-33.7); MCHC 34.6 g/dl (32.0-35.9); MEAN CELL VOLUME 94.9 fl (80-96); MEAN PLT VOLUME 8.4 fl (7.5-11.1); NEUT % 58.5 % (42.8-82.8); PLATELET COUNT 108 10^3/uL (134-434); RBC 4.27 M/mm3 (4.00-5.60); RDW 17.4 % (11.9-15.9); WHITE BLOOD COUNT 3.9 K/mm3 (4.0-10.0)
[2022-04-27 11:15] LABS: BLOOD UREA NITROGEN 3.7 mg/dL (7-18); CALCIUM 8.9 mg/dL (8.5-10.1)
[2022-04-27 11:16] LABS: ALBUMIN 3.7 g/dl (3.4-5.0); MAGNESIUM 1.9 mg/dL (1.8-2.4)
[2022-04-27 11:20] LABS: BILIRUBIN,TOTAL 0.9 mg/dL (0.2-1); CREATININE 0.7 mg/dL (0.55-1.3); PHOSPHOROUS 2.3 mg/dL (2.5-4.9); TOT PROT 6.8 g/dl (6.4-8.2)
[2022-04-27] MEDS: LORazepam 0.5 MG TABLET PO SCH ×2 (12:23→16:38)
[2022-04-27] MEDS ORDERED: SODIUM CHLORIDE 1,000 ML IV SCH (12:38)
[2022-04-27] MEDS ORDERED: NAPH,MB-DB/K PH,MBDB POWDER PACKET PO ONE (13:32)
[2022-04-27 18:44] VITALS: BP 127/90; PULSE 95; TEMP 98.7
[2022-04-28] MEDS ORDERED: LORazepam 0.5 MG TABLET PO PRN
[2022-04-28] MEDS ORDERED: LORazepam 0.5 MG TABLET PO SCH (05:00)
[2022-04-29] MEDS ORDERED: LORazepam 0.5 MG TABLET PO ONE (05:00)
== END 2022-04-27 20:27 | disposition left against medical advice (07) | DRG 894 ==
LOC: JER 10:41 → JERBED 16:28 → J5S 04-26 01:37
PROVIDERS: ADMIT Internal Medicine; ATTEND Internal Medicine
PROC: HZ2ZZZZ Detoxification Services for Substance Abuse Treatment (ICD-10-PCS; principal; 2022-04-25)
DX: F10.239 Alcohol dependence with withdrawal, unspecified (principal); K85.20 Alcohol induced acute pancreatitis without necrosis or infection; E87.1 Hypo-osmolality and hyponatremia; E87.5 Hyperkalemia; F32.A Depression, unspecified
CPT/HCPCS: 36415; 76705-TC; 80053; 80061; 83690; 83735; 84100; 85025; 93005; 93010; 99285-25; C9803-CS; U0003; U0005

== ENCOUNTER 2022-05-01 11:45 | Emergency (ER) | payer OTHER ==
[2022-05-01 12:13] VITALS: BP 146/99; PULSE 89; TEMP 99.7; BMI 27.8
[2022-05-01] MEDS ORDERED: ONDANSETRON 4 MG/2 ML VIAL IVPUSH ONE (15:07)
[2022-05-01] MEDS ORDERED: diazePAM CARPU-JECT 10 MG/2 ML DISP.SYRIN IVPUSH ONE (15:09)
[2022-05-01] MEDS ORDERED: SODIUM CHLORIDE 1,000 ML IV STA (15:09)
[2022-05-01] MEDS ORDERED: diazePAM CARPU-JECT 10 MG/2 ML DISP.SYRIN ONE ×2 (15:17→16:04)
[2022-05-01] MEDS ORDERED: ONDANSETRON 4 MG/2 ML VIAL ONE (15:17)
[2022-05-01 16:09] LABS: HEMATOCRIT 40.2 % (35.4-49); HEMOGLOBIN 13.9 GM/dL (11.7-16.9); MCH 32.8 pg (25.7-33.7); MCHC 34.7 g/dl (32.0-35.9); MEAN CELL VOLUME 94.6 fl (80-96); MEAN PLT VOLUME 8.6 fl (7.5-11.1); PLATELET COUNT 309 10^3/uL (134-434); RBC 4.25 M/mm3 (4.00-5.60); WHITE BLOOD COUNT 4.9 K/mm3 (4.0-10.0)
[2022-05-01 16:17] LABS: INR 1.06 (0.83-1.09); PROTHROMBIN TIME (PATIENT) 12.2 SEC (9.7-13.0)
[2022-05-01 16:20] LABS: ACTIVATED PTT 31.7 SECONDS (25.2-36.5)
[2022-05-01 16:28] LABS: CALCIUM 9.2 mg/dL (8.5-10.1)
[2022-05-01 16:29] LABS: ALBUMIN 3.9 g/dl (3.4-5.0); BLOOD UREA NITROGEN 4.8 mg/dL (7-18)
[2022-05-01 16:32] LABS: CREATININE 0.5 mg/dL (0.55-1.3)
[2022-05-01 16:33] LABS: BILIRUBIN,TOTAL 0.6 mg/dL (0.2-1)
[2022-05-01 16:34] LABS: TOT PROT 7.5 g/dl (6.4-8.2)
== END 2022-05-01 19:00 | disposition home or self-care (01) ==
LOC: JER 11:45
PROC: 3E033NZ Introduction of Analgesics, Hypnotics, Sedatives into Peripheral Vein, Percutaneous Approach (ICD-10-PCS; principal; 2022-05-01)
PROC: 3E033GC Introduction of Other Therapeutic Substance into Peripheral Vein, Percutaneous Approach (ICD-10-PCS; 2022-05-01)
PROC: 3E0337Z Introduction of Electrolytic and Water Balance Substance into Peripheral Vein, Percutaneous Approach (ICD-10-PCS; 2022-05-01)
DX: F10.929 Alcohol use, unspecified with intoxication, unspecified (principal)
CPT/HCPCS: 36415; 80053; 83690; 85027; 85610; 85730; 93005; 93010; 99284-25

== ENCOUNTER 2022-05-01 19:47 | Inpatient (IN) | payer OTHER ==
[2022-05-01] MEDS ORDERED: ACETAMINOPHEN 325 MG TABLET (FP) PO PRN ×2 (21:43)
[2022-05-01] MEDS ORDERED: DICYCLOMINE HCL 10 MG CAPSULE PO PRN (21:43)
[2022-05-01] MEDS ORDERED: ONDANSETRON *ODT* 4 MG TABLET SL PRN (21:43)
[2022-05-01] MEDS ORDERED: BENZOCAINE/MENTHOL (CHLORASEPTIC ) LOZENGE MM PRN (21:43)
[2022-05-01] MEDS ORDERED: IBUPROFEN 600 MG TABLET (FP) PO PRN (21:43)
[2022-05-01] MEDS ORDERED: BISMUTH SUBSALICYLATE 524 MG/30 ML PO PRN (21:43)
[2022-05-01] MEDS ORDERED: MAGNESIUM CITRATE 300 ML BOTTLE PO PRN (21:43)
[2022-05-01] MEDS ORDERED: guaiFENesin 200 MG/10 ML 10 ML UNIT-DOSE CUPS PO PRN (21:43)
[2022-05-01] MEDS ORDERED: MAGNESIUM HYDROX 2400MG/30ML ORAL SUSPENSION 30 ML CUP PO PRN (21:43)
[2022-05-01] MEDS ORDERED: P-EPHED 60MG/TRIPROLIDI 2.5MG TABLET PO PRN (21:43)
[2022-05-01] MEDS ORDERED: diazePAM 5 MG TABLET PO PRN (21:43)
[2022-05-01] MEDS ORDERED: MAG HYDROX/AL HYDROX/SIMETH 30 ML UNIT-DOSE CUP PO PRN (21:43)
[2022-05-01] MEDS ORDERED: IBUPROFEN 400 MG TABLET (FP) PO PRN (21:43)
[2022-05-01] MEDS ORDERED: LOPERAMIDE HCL 2 MG CAPSULE PO PRN (21:43)
[2022-05-01] MEDS ORDERED: diazePAM 5 MG TABLET ONE (21:55)
[2022-05-01] MEDS ORDERED: MELATONIN 5 MG TABLETS PO SCH (22:00)
[2022-05-01] MEDS ORDERED: diazePAM 5 MG TABLET PO SCH (23:00)
[2022-05-01] MEDS ORDERED: LORazepam 1 MG TABLET PO PRN (23:30)
[2022-05-02] MEDS: LORazepam 2 MG TABLET PO SCH ×5 (03:07→22:07)
[2022-05-02] MEDS: THIAMINE HCL 100 MG TABLET (FP) PO SCH ×2 (03:09→22:07)
[2022-05-02] MEDS: PRENATAL VITAMINS W/ FOLIC ACID TABLET (FP) PO SCH (10:06)
[2022-05-02] MEDS: METHOCARBAMOL 500 MG TABLET PO PRN (18:05)
[2022-05-02] MEDS: SUVOREXANT 10 MG TABLET PO PRN (22:08)
[2022-05-03] MEDS: LORazepam 1 MG TABLET PO SCH ×4 (05:34→22:40)
[2022-05-03] MEDS: METHOCARBAMOL 500 MG TABLET PO PRN ×2 (05:34→18:00)
[2022-05-03] MEDS ORDERED: diazePAM 5 MG TABLET PO SCH (06:00)
[2022-05-03] MEDS: PRENATAL VITAMINS W/ FOLIC ACID TABLET (FP) PO SCH (10:21)
[2022-05-03 11:49] LABS: HEMATOCRIT 39.5 % (35.4-49); HEMOGLOBIN 13.4 GM/dL (11.7-16.9); MCH 32.9 pg (25.7-33.7); MCHC 33.9 g/dl (32.0-35.9); MEAN CELL VOLUME 97.2 fl (80-96); MEAN PLT VOLUME 9.2 fl (7.5-11.1); PLATELET COUNT 339 10^3/uL (134-434); RBC 4.06 M/mm3 (4.00-5.60); WHITE BLOOD COUNT 6.1 K/mm3 (4.0-10.0)
[2022-05-03 12:12] LABS: CALCIUM 9.2 mg/dL (8.5-10.1)
[2022-05-03 12:13] LABS: ALBUMIN 3.9 g/dl (3.4-5.0)
[2022-05-03 12:16] LABS: CREATININE 0.8 mg/dL (0.55-1.3)
[2022-05-03 12:18] LABS: BILIRUBIN,TOTAL 0.6 mg/dL (0.2-1)
[2022-05-03] MEDS: THIAMINE HCL 100 MG TABLET (FP) PO SCH (22:40)
[2022-05-03] MEDS: SUVOREXANT 10 MG TABLET PO PRN (22:41)
[2022-05-04] MEDS ORDERED: LORazepam 0.5 MG TABLET PO PRN
[2022-05-04] MEDS ORDERED: diazePAM 5 MG TABLET PO SCH (06:00)
[2022-05-04] MEDS: LORazepam 0.5 MG TABLET PO SCH ×4 (06:02→22:16)
[2022-05-04] MEDS: PRENATAL VITAMINS W/ FOLIC ACID TABLET (FP) PO SCH (10:12)
[2022-05-04] MEDS: METHOCARBAMOL 500 MG TABLET PO PRN (17:56)
[2022-05-04] MEDS: SUVOREXANT 10 MG TABLET PO PRN (22:15)
[2022-05-05] MEDS: THIAMINE HCL 100 MG TABLET (FP) PO SCH (01:03)
[2022-05-05] MEDS ORDERED: LORazepam 0.5 MG TABLET PO ONE (05:00)
[2022-05-05] MEDS ORDERED: diazePAM 5 MG TABLET PO ONE (06:00)
[2022-05-05 09:21] VITALS: BP 124/85; PULSE 84; TEMP 97.7
== END 2022-05-05 08:46 | disposition home or self-care (01) | DRG 897 ==
LOC: YASAS 19:47 → Y6N 23:35
PROVIDERS: ADMIT Allergy & Immunology; ATTEND Family Medicine
PROC: HZ2ZZZZ Detoxification Services for Substance Abuse Treatment (ICD-10-PCS; principal; 2022-05-01)
DX: F10.230 Alcohol dependence with withdrawal, uncomplicated (principal); F10.280 Alcohol dependence with alcohol-induced anxiety disorder; F10.282 Alcohol dependence with alcohol-induced sleep disorder; F19.24 Other psychoactive substance dependence with psychoactive substance-induced mood disorder; F39 Unspecified mood [affective] disorder; R63.8 Other symptoms and signs concerning food and fluid intake; R74.8 Abnormal levels of other serum enzymes; R25.3 Fasciculation; Z87.19 Personal history of other diseases of the digestive system
CPT/HCPCS: 36415; 80053; 85027; 86780; C9803-CS; U0003; U0005

== ENCOUNTER 2022-06-26 04:20 | Inpatient (IN) | payer OTHER ==
[2022-06-26] MEDS ORDERED: chlordiazePOXIDE HCL 25 MG CAPSULE PO SCH (05:00)
[2022-06-26 05:08] VITALS: BMI 27.8
[2022-06-26] MEDS ORDERED: MAG HYDROX/AL HYDROX/SIMETH 30 ML UNIT-DOSE CUP PO PRN (05:52)
[2022-06-26] MEDS ORDERED: chlordiazePOXIDE HCL 25 MG CAPSULE PO PRN (05:52)
[2022-06-26] MEDS ORDERED: DICYCLOMINE HCL 10 MG CAPSULE PO PRN (05:52)
[2022-06-26] MEDS ORDERED: BENZOCAINE/MENTHOL (CHLORASEPTIC ) LOZENGE MM PRN (05:52)
[2022-06-26] MEDS ORDERED: ONDANSETRON *ODT* 4 MG TABLET SL PRN (05:52)
[2022-06-26] MEDS ORDERED: MAGNESIUM HYDROX 2400MG/30ML ORAL SUSPENSION 30 ML CUP PO PRN (05:52)
[2022-06-26] MEDS ORDERED: ACETAMINOPHEN 325 MG TABLET (FP) PO PRN ×2 (05:52)
[2022-06-26] MEDS ORDERED: BISMUTH SUBSALICYLATE 524 MG/30 ML PO PRN (05:52)
[2022-06-26] MEDS ORDERED: MAGNESIUM CITRATE 300 ML BOTTLE PO PRN (05:52)
[2022-06-26] MEDS ORDERED: LOPERAMIDE HCL 2 MG CAPSULE PO PRN (05:52)
[2022-06-26] MEDS ORDERED: IBUPROFEN 400 MG TABLET (FP) PO PRN (05:52)
[2022-06-26] MEDS ORDERED: LORazepam 1 MG TABLET PO PRN (06:03)
[2022-06-26] MEDS: LORazepam 2 MG TABLET PO SCH ×4 (06:27→22:13)
[2022-06-26] MEDS: IBUPROFEN 600 MG TABLET (FP) PO PRN ×2 (06:29→14:47)
[2022-06-26] MEDS ORDERED: cloNIDine HCL 0.1 MG TABLET PO ONE (07:50)
[2022-06-26] MEDS: PRENATAL VITAMINS W/ FOLIC ACID TABLET (FP) PO SCH (10:37)
[2022-06-26] MEDS: METHOCARBAMOL 500 MG TABLET PO PRN (10:38)
[2022-06-26 11:59] LABS: HEMATOCRIT 42.6 % (35.4-49); HEMOGLOBIN 14.9 GM/dL (11.7-16.9); MCH 34.3 pg (25.7-33.7); MCHC 34.9 g/dl (32.0-35.9); MEAN CELL VOLUME 98.1 fl (80-96); MEAN PLT VOLUME 8.8 fl (7.5-11.1); PLATELET COUNT 280 10^3/uL (134-434); RBC 4.34 M/mm3 (4.00-5.60); RDW 15.3 % (11.9-15.9); WHITE BLOOD COUNT 5.5 K/mm3 (4.0-10.0)
[2022-06-26 12:04] LABS: CREATININE 0.8 mg/dL (0.55-1.3)
[2022-06-26 12:05] LABS: ALBUMIN 4.5 g/dl (3.4-5.0); CALCIUM 10.2 mg/dL (8.5-10.1)
[2022-06-26 12:07] LABS: BILIRUBIN,TOTAL 1.2 mg/dL (0.2-1); TOT PROT 8.1 g/dl (6.4-8.2)
[2022-06-26] MEDS: THIAMINE HCL 100 MG TABLET (FP) PO SCH (22:13)
[2022-06-26] MEDS: MELATONIN 5 MG TABLETS PO SCH (22:33)
[2022-06-27] MEDS ORDERED: chlordiazePOXIDE HCL 25 MG CAPSULE PO SCH (05:00)
[2022-06-27] MEDS: LORazepam 1 MG TABLET PO SCH ×4 (05:30→22:40)
[2022-06-27] MEDS: METHOCARBAMOL 500 MG TABLET PO PRN (10:18)
[2022-06-27] MEDS: PRENATAL VITAMINS W/ FOLIC ACID TABLET (FP) PO SCH (10:18)
[2022-06-27 12:28] LABS: BLOOD UREA NITROGEN 10.8 mg/dL (7-18); CALCIUM 9.5 mg/dL (8.5-10.1)
[2022-06-27 12:31] LABS: CREATININE 0.9 mg/dL (0.55-1.3)
[2022-06-27 12:33] LABS: BILIRUBIN,TOTAL 0.8 mg/dL (0.2-1); TOT PROT 7.4 g/dl (6.4-8.2)
[2022-06-27] MEDS: MELATONIN 5 MG TABLETS PO SCH (22:39)
[2022-06-27] MEDS: THIAMINE HCL 100 MG TABLET (FP) PO SCH (22:40)
[2022-06-28] MEDS ORDERED: chlordiazePOXIDE HCL 10 MG CAPSULE PO PRN
[2022-06-28] MEDS ORDERED: LORazepam 0.5 MG TABLET PO PRN
[2022-06-28] MEDS ORDERED: chlordiazePOXIDE HCL 10 MG CAPSULE PO SCH (05:00)
[2022-06-28] MEDS: LORazepam 0.5 MG TABLET PO SCH ×4 (05:29→22:08)
[2022-06-28] MEDS: PRENATAL VITAMINS W/ FOLIC ACID TABLET (FP) PO SCH (10:07)
[2022-06-28] MEDS: METHOCARBAMOL 500 MG TABLET PO PRN (10:08)
[2022-06-28] MEDS: THIAMINE HCL 100 MG TABLET (FP) PO SCH (22:08)
[2022-06-28] MEDS: MELATONIN 5 MG TABLETS PO SCH (22:08)
[2022-06-29] MEDS ORDERED: chlordiazePOXIDE HCL 10 MG CAPSULE PO SCH (05:00)
[2022-06-29] MEDS ORDERED: LORazepam 0.5 MG TABLET PO ONE (05:00)
[2022-06-29 06:39] VITALS: TEMP 97.7
[2022-06-29 09:47] VITALS: BP 143/90; PULSE 101; RESP 18
[2022-06-30] MEDS ORDERED: chlordiazePOXIDE HCL 10 MG CAPSULE PO ONE (05:00)
== END 2022-06-29 09:15 | disposition home or self-care (01) | DRG 897 ==
LOC: YASAS 04:20 → Y6N 05:31
PROVIDERS: ADMIT Surgery; ATTEND Allergy & Immunology
PROC: HZ2ZZZZ Detoxification Services for Substance Abuse Treatment (ICD-10-PCS; principal; 2022-06-26)
DX: F10.230 Alcohol dependence with withdrawal, uncomplicated (principal); F41.9 Anxiety disorder, unspecified; R74.8 Abnormal levels of other serum enzymes; Z87.19 Personal history of other diseases of the digestive system
CPT/HCPCS: 36415; 80053; 85027; 86780; 93005; 93010; C9803-CS; U0003; U0005